=== PATIENT | male | born 1990 | race Two or more races ===

== ENCOUNTER 2020-06-26 10:08 | Emergency (ER) | payer OTHER ==
[~2020-06-26] VITALS: Ht 172.7 cm; Wt 81.8 kg
[2020-06-26 11:53] VITALS: BP 144/98
[2020-06-26] MEDS ORDERED: NAPROXEN 250 MG TABLET PO ONE (12:00)
== END 2020-06-26 12:34 | disposition home or self-care (01) ==
LOC: EMS 10:08
DX: S06.0X9A Concussion with loss of consciousness of unspecified duration, initial encounter (principal); W06.XXXA Fall from bed, initial encounter; Y93.89 Activity, other specified; Y92.89 Other specified places as the place of occurrence of the external cause; Y99.8 Other external cause status
CPT/HCPCS: 70450; 99284